=== PATIENT | female | born 1960 | race Caucasian/White ===

== ENCOUNTER → 2016-05-27 | Outpatient (CLI) | payer OTHER ==
[~2016-05-27] MED LIST: ALBUTEROL INH; BENAZEPRIL-HCT1 EAC2 PO; BREO ELLIPTA 21 EACH IH; CARDIZEM CD120 MG PO; COLACE100 MG PO; DARVOCET-N 1001 EAC1 PO; DESYREL50 MG PO; DULCOLAX RE; FISH OIL 1,0001 EAC5 PO; IBUPROFEN 800800 M1 PO; LEVAQUIN 750 M750 MG PO; LIPITOR 20 MG T20 M1 PO; LORTAB 5 MG/5001 TA1 PO; MAXALT MLT ODT10 M1 PO; MEDROLDOSEPACK PO; MIRALAX255 GM PO; MOM PO; NORCO 5-325 TA1 EACH PO; PAXIL30 MG PO; PERCOCET 5-3251 EACH PO; PREDNISONE 20 M20 MG PO; PROAIR HFA8.5 GM INH; PROMETRIUM100 MG PO; PULMICORT FLE180 MCG IH; REVIA 50 MG TAB50 M1 OR; SINGULAIR 10 MG10 M1 PO; VALIUM2 MG PO; VALIUM5 MG; VERAMYST10 GM NS; VIIBRYD40 MG PO; VIVELLE1 EAC1 TD; WELLBUTRIN XL150 M1 PO; XANAX 0.5 MG0.5 M1 PO; XANAX 0.5 MG0.5 MG; XOPENEX1.25 MG/3 IH; ZYRTEC10 M2 PO
== END ==
LOC: RAD 15:10
DX: R07.89 Other chest pain (principal); R05 Cough